=== PATIENT | female | born 1935 | race Caucasian/White ===

== ENCOUNTER → 2018-10-24 | Outpatient (CLI) | payer MEDICARE ==
[~2018-10-24] MED LIST: ASPIR 8181 MG PO; B-COMPLEX-VITA1 EACH PO; CALCIUM 600 +1 EAC8 PO; FISH OIL500 MG PO; FOSINOPRIL SODI20 M1 PO; HYDROCHLOROTHIA25 M1 PO; METOPROLOL SUCC50 MG PO; MULTIVITAMINS1 EAC7 PO; PEPCID AC10 MG PO; SIMVASTATIN80 MG PO; SYNTHROID112 MCG PO; VITAMIN C500 MG PO; VITAMIN D1000 UNI2 PO; VITAMIN E400 UNI2 PO
== END ==
LOC: M.MRI 16:56
DX: M47.896 Other spondylosis, lumbar region (principal); M48.061 Spinal stenosis, lumbar region without neurogenic claudication; M51.27 Other intervertebral disc displacement, lumbosacral region

== ENCOUNTER → 2019-07-19 | Outpatient (CLI) | payer MEDICARE | LOC: M.MRI 13:26 | DX: M51.86 Other intervertebral disc disorders, lumbar region (principal); M47.816 Spondylosis without myelopathy or radiculopathy, lumbar region; M48.061 Spinal stenosis, lumbar region without neurogenic claudication ==